=== PATIENT | female | born 1995 | race Caucasian/White ===

== ENCOUNTER 2020-08-25 15:52 | Inpatient (IN) | payer OTHER ==
[2020-08-25] MEDS ORDERED: Terbutaline 1 MG/ML SDV SUBCUT PRN (16:56)
[2020-08-25] MEDS ORDERED: Misoprostol 25 MCG (1/4 of 100 MCG) Tab VAG PRN ×2 (16:56→23:00)
[2020-08-25] MEDS ORDERED: Oxytocin/0.9 % Sodium Chloride 30 UNIT/500 ML BAG IV SCH ×2 (17:00→17:15)
[2020-08-25] MEDS ORDERED: Tranexamic Acid 1,000 MG in Sodium Chloride 0.9% 100 ML IV PRN (17:02)
[2020-08-25] MEDS ORDERED: Sodium Chloride 0.9% 10 ML Syringe FLUSH PRN (17:02)
[2020-08-25] MEDS ORDERED: Water For Irrigation,Sterile 1,000 ML Container IRR PRN (17:02)
[2020-08-25] MEDS ORDERED: Ondansetron 4 MG/2 ML SDV IVPUSH PRN (17:02)
[2020-08-25] MEDS ORDERED: Lidocaine 1% 50 ML MDV INJECT PRN (17:02)
[2020-08-25] MEDS ORDERED: Methylergonovine 0.2 MG/1 ML Amp IM PRN (17:02)
[2020-08-25] MEDS ORDERED: Nalbuphine 10 MG/1 ML Vial IVPUSH PRN (17:02)
[2020-08-25] MEDS ORDERED: Sodium Chloride 0.9% 2.5 ML Syringe FLUSH PRN (17:02)
[2020-08-25] MEDS ORDERED: Misoprostol 200 MCG Tab PO PRN (17:02)
[2020-08-25] MEDS ORDERED: Sodium Chloride 0.9% 10 ML SDV IV PRN (17:02)
[2020-08-25] MEDS ORDERED: Butorphanol 1 MG/ML SDV IVPUSH PRN (17:02)
[2020-08-25] MEDS ORDERED: Carboprost Tromethamine 250 MCG/1 ML Amp IM PRN (17:02)
[2020-08-26] MEDS: Lactated Ringers 1,000 ML IV SCH ×2 (05:25→06:03)
[2020-08-26] MEDS ORDERED: Bupivacaine 0.25% 10 ML SDV ONE (05:46)
[2020-08-26] MEDS ORDERED: Ropivacaine HCl/PF 200 ML ONE (05:46)
--- NOTE | 2020-08-26 06:30 | PCM.PREANE ---
Preanesthetic Assessment - Anesthesia/Transfusion/Family Hx Anesthesia History: No Prior Anesthesia Family History of Anesthesia Reaction: No Transfusion History: No Prior Transfusion(s) - Review of Systems General: No Symptoms Pulmonary: No Symptoms Cardiovascular: No Symptoms Gastrointestinal: No Symptoms Neurological: No Symptoms Other: Reports: None - Physical Assessment NPO Status Date: 08/26/20 NPO Status Time: 05:53 Height: 5 ft 10 in Weight: 191 lb ASA Class: 2 Mental Status: Alert & Oriented x3 Airway Class: Mallampati = 2 Dentition: Reports: Normal Dentition ROM/Head Extension: Full Lungs: Clear to Auscultation, Normal Respiratory Effort Cardiovascular: Regular Rate, Regular Rhythm - Lab Values: Laboratory Last Values WBC 9.04 K/uL (4.0-11.0) 08/25/20 16:44 RBC 4.04 M/uL (4.30-5.90) L 08/25/20 16:44 Hgb 13.3 g/dL (12.0-16.0) 08/25/20 16:44 Hct 38.9 % (36.0-46.0) 08/25/20 16:44 MCV 96.3 fL (80.0-98.0) 08/25/20 16:44 MCH 32.9 pg (27.0-32.0) H 08/25/20 16:44 MCHC 34.2 g/dL (31.0-37.0) 08/25/20 16:44 RDW Std Deviation 47.4 fl (28.0-62.0) 08/25/20 16:44 RDW Coeff of Magan 13 % (11.0-15.0) 08/25/20 16:44 Plt Count 185 K/uL (150-400) 08/25/20 16:44 MPV 11.00 fL (7.40-12.00) 08/25/20 16:44 Nucleated RBC % 0.0 /100WBC 08/25/20 16:44 Nucleated RBCs # 0 K/uL 08/25/20 16:44 SARS-CoV-2 RNA (ALBA) NEGATIVE (NEGATIVE) 08/25/20 16:44 Blood Type A POSITIVE 08/25/20 16:44 Antibody Screen NEGATIVE 08/25/20 16:44 - Allergies Allergies/Adverse Reactions: Allergies Allergy/AdvReac Type Severity Reaction Status Date / Time No Known Allergies Allergy Verified 08/25/20 17:24 - Blood Blood Available: Yes Product(s) Available: PRBC - Anesthesia Plan Pre-Op Medication Ordered: None - Acknowledgements Anesthesia Type Planned: Epidural Pt an Appropriate Candidate for the Planned Anesthesia: Yes Alternatives and Risks of Anesthesia Discussed w Pt/Guardian: Yes Pt/Guardian Understands and Agrees with Anesthesia Plan: Yes PreAnesthesia Questionnaire - Past Health History Medical/Surgical History: Denies Medical/Surgical History BAS[employer] DEAN History: Reports: - SUBSTANCE USE Tobacco Use Within Last Twelve Months: No Second Hand Smoke Exposure: No Recreational Drug Use History: No - HOME MEDS Home Medications: Home Meds Pnv No.95/Ferrous Fum/Folic AC [ Caplet] 1 each PO DAILY 08/25/20 [History] - CURRENT (IN HOUSE) MEDS Current Meds: Current Medications Butorphanol Tartrate (Butorphanol 1 Mg/Ml Sdv) 1 mg IVPUSH Q1H PRN PRN Reason: Pain (severe 7-10) Carboprost Tromethamine (Carboprost Tromethamine 250 Mcg/1 Ml Amp) 250 mcg IM ASDIRECTED PRN PRN Reason: Post Hemorrhage Oxytocin/Sodium Chloride (Oxytocin 30 Unit/500 Ml-Ns) 30 unit in 500 mls @ 2 mls/hr IV TITRATE STEVE; Protocol Lactated Ringer's (Ringers, Lactated) 1,000 mls @ 150 mls/hr IV ASDIRECTED STEVE Last Admin: 08/26/20 06:03 Dose: 150 mls/hr Documented by: Oxytocin/Sodium Chloride (Oxytocin 30 Unit/500 Ml-Ns) 30 unit in 500 mls @ 999 mls/hr IV TITRATE STEVE Tranexamic Acid 1,000 mg/ (Sodium Chloride) 110 mls @ 660 mls/hr IV ONETIME PRN PRN Reason: Bleeding Lidocaine HCl (Lidocaine 1% 50 Ml Mdv) 50 ml INJECT ONETIME PRN PRN Reason: Laceration repair Methylergonovine Maleate (Methylergonovine 0.2 Mg/1 Ml Amp) 0.2 mg IM ASDIRECTED PRN PRN Reason: Post Hemorrhage Misoprostol (Misoprostol 25 Mcg (1/4 Of 100 Mcg) Tab) 25 mcg VAG ONETIME PRN PRN Reason: Cervical Ripening Last Admin: 08/25/20 17:46 Dose: 25 mcg Documented by: Misoprostol (Misoprostol 25 Mcg (1/4 Of 100 Mcg) Tab) 25 mcg VAG Q6H PRN PRN Reason: Cervical Ripening Last Admin: 08/25/20 23:54 Dose: 25 mcg Documented by: Misoprostol (Misoprostol 200 Mcg Tab) 200 mcg PO ONETIME PRN PRN Reason: Post Hemorrhage Nalbuphine HCl (Nalbuphine 10 Mg/1 Ml Vial) 10 mg IVPUSH Q1H PRN PRN Reason: Pain (severe 7-10) Ondansetron HCl (Ondansetron 4 Mg/2 Ml Sdv) 4 mg IVPUSH Q6H PRN PRN Reason: Nausea/Vomiting Sodium Chloride (Sodium Chloride 0.9% 10 Ml Syringe) 10 ml FLUSH ASDIRECTED PRN PRN Reason: Keep Vein Open Sodium Chloride (Sodium Chloride 0.9% 2.5 Ml Syringe) 2.5 ml FLUSH ASDIRECTED PRN PRN Reason: Keep Vein Open Sodium Chloride (Sodium Chloride 0.9% 10 Ml Sdv) 10 ml IV ASDIRECTED PRN PRN Reason: IV Use Sterile Water (Water For Irrigation,Sterile 1,000 Ml Container) 1,000 ml IRR ASDIRECTED PRN PRN Reason: delivery Terbutaline Sulfate (Terbutaline 1 Mg/Ml Sdv) 0.25 mg SUBCUT ASDIRECTED PRN PRN Reason: Tacysystole Discontinued Medications Bupivacaine HCl (Bupivacaine 0.25% 10 Ml Sdv) Confirm Administered Dose 10 ml .ROUTE .STK-MED ONE Stop: 08/26/20 05:47 Ropivacaine (Naropin 0.2%) Confirm Administered Dose 200 mls @ as directed .ROUTE .STK-MED ONE Stop: 08/26/20 05:47
--- NOTE | 2020-08-26 06:35 | PCM.SN.2 ---
- Pre-Procedure Checklist Attending Provider Aware: Yes Chart Reviewed: Yes Consent Signed: Yes Labs Reviewed: Yes VS/FHR Reviewed: Yes Patient Identification Confirmation Method: Reports: Verbal Patient Pt an Appropriate Candidate for the Planned Anesthesia: Yes Alternatives and Risks of Anesthesia Discussed w Pt/Guardian: Yes - Procedure Procedure Start Date: 08/26/20 Procedure Start Time: 05:[address]: Reports: Blood Pressure, Heart Rate, SPO2 Functional IV: Yes Safety Measures: Reports: Patient Identified, Procedure Verified, Site Verified, Procedure Time Out Patient Position: Reports: Sitting Prep: Reports: Betadine x3 Local Anesthetic: Reports: Intradermal Wheal w Lidocaine 1% Regional Placement Level: Reports: L3-4 Needle: Reports: 17 g Touhy Approach: Reports: Midline Technique: Reports: MARSHA Plastic Syringe Parasthesia: Reports: None Fluid Obtained: Reports: None Test Dose Time: 05:59 Test Dose Medication: Reports: Lidocaine 1.5% w Epinephrine 1:200,000 Test Dose Response: Reports: Negative Loading Dose Time: 05:58 Loading Dose Medication: bupivicaine 0.25% 10cc Loading Dose Patient Position: sittting Continuous Infusion Start Time: 06:05 Continuous Infusion Medication: ropivicaine 0.2% Continuous Infusion Rate: 16 Continuous Infusion PCS Bolus Option: 4 Continuous Infusion Lockout Dose (cc/hr): 32 Patient Position Post Placement: Reports: Supline/RASTA Level Achieved: adequate VS and FHR Monitored in Unit Post Placement: Yes Procedure End Date: 08/26/20 Procedure End Time: 06:53
[2020-08-26] MEDS ORDERED: Ibuprofen 800 MG Tab PO PRN (08:11)
[2020-08-26] MEDS ORDERED: Tranexamic Acid 1,000 MG in Sodium Chloride 0.9% 100 ML IV PRN (08:11)
[2020-08-26] MEDS ORDERED: Witch Hazel Medicated Pads 40/Jar TOP PRN (08:11)
[2020-08-26] MEDS ORDERED: Ibuprofen 400 MG Tab PO PRN (08:11)
[2020-08-26] MEDS ORDERED: Bisacodyl 10 MG Supp RECTAL PRN (08:11)
[2020-08-26] MEDS ORDERED: Lanolin 100% Cream 7 GM Tube TOP PRN (08:11)
[2020-08-26] MEDS ORDERED: Methylergonovine 0.2 MG/1 ML Amp IM PRN (08:11)
[2020-08-26] MEDS ORDERED: Acetaminophen 500 MG Tab PO PRN ×2 (08:11)
[2020-08-26] MEDS ORDERED: Carboprost Tromethamine 250 MCG/1 ML Amp IM PRN (08:11)
[2020-08-26] MEDS ORDERED: Benzocaine/Menthol 20%-0.5% Spray 78 GM Cannister TOP PRN (08:11)
--- NOTE | 2020-08-26 08:16 | PCM.DEL ---
L & D Note - General Info Date of Service: 08/26/20 Mother's Due Date: 08/23/20 - Delivery Note Cervical Ripening Method: Misoprostil Delivery Outcome: Livebirth Infant Delivery Method: Spontaneous Vaginal Delivery-Single Presentation: Left Occiput Anterior (VERONIKA) Nuchal Cord: None Prep: Other Anesthesia Type: Epidural Amniotic Fluid Description: Clear Episiotomy Type: None Placenta: Spontaneous Cord: 3 Vessels Estimated Blood Loss: 200 Resuscitation Needed: No [place]: Suctioned Score 1 min: 8 Score 5 min: 9 Delivery Comments (Free Text/Narrative):: LIveborn female - General Info Date of Service: 08/26/20 - Patient Data Weight - Most Recent: 86.636 kg Lab Results Last 24 Hours: Laboratory Results - last 24 hr 08/25/20 08/25/20 08/25/20 Range/Units 16:44 16:44 16:44 WBC 9.04 (4.0-11.0) K/uL RBC 4.04 L (4.30-5.90) M/uL Hgb 13.3 (12.0-16.0) g/dL Hct 38.9 (36.0-46.0) % MCV 96.3 (80.0-98.0) fL MCH 32.9 H (27.0-32.0) pg MCHC 34.2 (31.0-37.0) g/dL RDW Std Deviation 47.4 (28.0-62.0) fl RDW Coeff of Magan 13 (11.0-15.0) % Plt Count 185 (150-400) K/uL MPV 11.00 (7.40-12.00) fL Nucleated RBC % 0.0 /100WBC Nucleated RBCs # 0 K/uL SARS-CoV-2 RNA (ALBA) NEGATIVE (NEGATIVE) Blood Type A POSITIVE Antibody Screen NEGATIVE Med Orders - Current: Current Medications Acetaminophen (Acetaminophen 500 Mg Tab) 500 mg PO Q4H PRN PRN Reason: Pain (mild 1-3) Acetaminophen (Acetaminophen 500 Mg Tab) 1,000 mg PO Q4H PRN PRN Reason: Pain (mild 1-3) Benzocaine/Menthol (Benzocaine/Menthol 20%-0.5% [place] 78 Gm Cannister) 78 gm TOP ASDIRECTED PRN PRN Reason: Perineal Comfort Measure Bisacodyl (Bisacodyl 10 Mg Supp) 10 mg RECTAL ONETIME PRN PRN Reason: Constipation Carboprost Tromethamine (Carboprost Tromethamine 250 Mcg/1 Ml Amp) 250 mcg IM ASDIRECTED PRN PRN Reason: Excessive vaginal bleeding Docusate Sodium (Docusate Sodium 100 Mg Cap) 100 mg PO Q12H PRN PRN Reason: Constipation Emollient Ointment (Lanolin 100% Cream 7 Gm Tube) 0 gm TOP ASDIRECTED PRN PRN Reason: Sore Nipples Tranexamic Acid 1,000 mg/ (Sodium Chloride) 110 mls @ 660 mls/hr IV ONETIME PRN PRN Reason: Bleeding Ibuprofen (Ibuprofen 400 Mg Tab) 400 mg PO Q4H PRN PRN Reason: Pain (mild 1-3) Ibuprofen (Ibuprofen 800 Mg Tab) 800 mg PO Q6H PRN PRN Reason: Pain (mild 1-3) Methylergonovine Maleate (Methylergonovine 0.2 Mg/1 Ml Amp) 0.2 mg IM ONETIME PRN PRN Reason: Excessive Vaginal Bleeding Witch Saundra (Witch Saundra Medicated Pads 40/Jar) 1 pad TOP ASDIRECTED PRN PRN Reason: comfort care Discontinued Medications Bupivacaine HCl (Bupivacaine 0.25% 10 Ml Sdv) Confirm Administered Dose 10 ml .ROUTE .K-MED ONE Stop: 08/26/20 05:47 Last Admin: 08/26/20 07:41 Dose: Not Given Documented by: Butorphanol Tartrate (Butorphanol 1 Mg/Ml Sdv) 1 mg IVPUSH Q1H PRN PRN Reason: Pain (severe 7-10) Carboprost Tromethamine (Carboprost Tromethamine 250 Mcg/1 Ml Amp) 250 mcg IM ASDIRECTED PRN PRN Reason: Post Hemorrhage Oxytocin/Sodium Chloride (Oxytocin 30 Unit/500 Ml-Ns) 30 unit in 500 mls @ 2 mls/hr IV TITRATE STEVE; Protocol Lactated Ringer's (Ringers, Lactated) 1,000 mls @ 150 mls/hr IV ASDIRECTED STEVE Last Admin: 08/26/20 06:03 Dose: 150 mls/hr Documented by: Oxytocin/Sodium Chloride (Oxytocin 30 Unit/500 Ml-Ns) 30 unit in 500 mls @ 999 mls/hr IV TITRATE STEVE Tranexamic Acid 1,000 mg/ (Sodium Chloride) 110 mls @ 660 mls/hr IV ONETIME PRN PRN Reason: Bleeding Ropivacaine (Naropin 0.2%) Confirm Administered Dose 200 mls @ as directed .ROUTE .STK-MED ONE Stop: 08/26/20 05:47 Last Admin: 08/26/20 07:41 Dose: Not Given Documented by: Lidocaine HCl (Lidocaine 1% 50 Ml Mdv) 50 ml INJECT ONETIME PRN PRN Reason: Laceration repair Methylergonovine Maleate (Methylergonovine 0.2 Mg/1 Ml Amp) 0.2 mg IM ASDIRECTED PRN PRN Reason: Post Hemorrhage Misoprostol (Misoprostol 25 Mcg (1/4 Of 100 Mcg) Tab) 25 mcg VAG ONETIME PRN PRN Reason: Cervical Ripening Last Admin: 08/25/20 17:46 Dose: 25 mcg Documented by: Misoprostol (Misoprostol 25 Mcg (1/4 Of 100 Mcg) Tab) 25 mcg VAG Q6H PRN PRN Reason: Cervical Ripening Last Admin: 08/25/20 23:54 Dose: 25 mcg Documented by: Misoprostol (Misoprostol 200 Mcg Tab) 200 mcg PO ONETIME PRN PRN Reason: Post Hemorrhage Nalbuphine HCl (Nalbuphine 10 Mg/1 Ml Vial) 10 mg IVPUSH Q1H PRN PRN Reason: Pain (severe 7-10) Ondansetron HCl (Ondansetron 4 Mg/2 Ml Sdv) 4 mg IVPUSH Q6H PRN PRN Reason: Nausea/Vomiting Sodium Chloride (Sodium Chloride 0.9% 10 Ml Syringe) 10 ml FLUSH ASDIRECTED PRN PRN Reason: Keep Vein Open Sodium Chloride (Sodium Chloride 0.9% 2.5 Ml Syringe) 2.5 ml FLUSH ASDIRECTED PRN PRN Reason: Keep Vein Open Sodium Chloride (Sodium Chloride 0.9% 10 Ml Sdv) 10 ml IV ASDIRECTED PRN PRN Reason: IV Use Sterile Water (Water For Irrigation,Sterile 1,000 Ml Container) 1,000 ml IRR ASDIRECTED PRN PRN Reason: delivery Terbutaline Sulfate (Terbutaline 1 Mg/Ml Sdv) 0.25 mg SUBCUT ASDIRECTED PRN PRN Reason: Tacysystole - Problem List & Annotations (1) Vaginal delivery SNOMED Code(s): 480063116 Code(s): O80 - ENCOUNTER FOR FULL-TERM UNCOMPLICATED DELIVERY Status: Acute Current Visit: Yes (2) Polyhydramnios SNOMED Code(s): 97913700 Code(s): O40.9XX0 - POLYHYDRAMNIOS, UNSP TRIMESTER, NOT APPLICABLE OR UNSP Status: Acute Current Visit: Yes Qualifiers: Trimester: third trimester - Problem List Review Problem List Initiated/Reviewed/Updated: Yes - My Orders Last 24 Hours: My Active Orders 08/26/20 Breakfast Regular Diet [DIET] 08/26/20 08:11 Patient Status [ADT] Routine May Shower [RC] ASDIRECTED Up ad Arianna [RC] ASDIRECTED Vital Signs [RC] PER UNIT ROUTINE BLOOD GAS ARTERIAL UMBILICAL [BG] Urgent BLOOD GAS VENOUS UMBILICAL [BG] Urgent Acetaminophen [Tylenol Extra Strength] 1,000 mg PO Q4H PRN Acetaminophen [Tylenol Extra Strength] 500 mg PO Q4H PRN Benzocaine/Menthol [Dermoplast Pain Relief 20%-0.5% [place]] 78 gm TOP ASDIRECTED PRN Carboprost Tromethamine [Hemabate DS] 250 mcg IM ASDIRECTED PRN Docusate Sodium [Colace] 100 mg PO Q12H PRN Ibuprofen [Motrin] 400 mg PO Q4H PRN Ibuprofen [Motrin] 800 mg PO Q6H PRN Lanolin [Lansinoh HPA] See Dose Instructions TOP ASDIRECTED PRN Methylergonovine [Methergine] 0.2 mg IM ONETIME PRN Tranexamic Acid [Cyklokapron] 1,000 mg Sodium Chloride 0.9% [Normal Saline] 100 ml IV ONETIME bisacodyL [Dulcolax] 10 mg RECTAL ONETIME PRN witch Saundra [Tucks] 1 pad TOP ASDIRECTED PRN Assess Lochia [WOMSER] Per Unit Routine Assess Uterine Involution [WOMSER] Per Unit Routine Peripheral IV Discontinue [OM.PC] Routine Resuscitation Status Routine 08/26/20 08:12 Perineal Care [OM.PC] Per Unit Routine 08/27/20 05:11 HEMOGLOBIN/HEMATOCRIT,HH [HEME] Timed
[2020-08-26] MEDS ORDERED: hydrOXYzine Pamoate 25 MG Cap PO ONE (10:09)
--- NOTE | 2020-08-26 13:00 | PCM48HPAN ---
Post Anesthesia Note - EVALUATION WITHIN 48HRS OF ANESTHETIC Vital Signs in Normal Range: Yes Patient Participated in Evaluation: Yes Respiratory Function Stable: Yes Airway Patent: Yes Cardiovascular Function Stable: Yes Hydration Status Stable: Yes Pain Control Satisfactory: Yes Nausea and Vomiting Control Satisfactory: Yes Mental Status Recovered: Yes Vital Signs: Last Vital Signs Temp 98.3 F 08/26/20 10:20 Pulse 79 08/26/20 10:20 Resp 18 08/26/20 10:20 BP 107/63 08/26/20 10:20 Pulse Ox
--- NOTE | 2020-08-26 13:00 | PCM.POSTAN ---
POST ANESTHESIA ASSESSMENT - MENTAL STATUS Mental Status: Alert, Oriented - VITAL SIGNS Vital Signs: Last Vital Signs Temp 98.3 F 08/26/20 10:20 Pulse 79 08/26/20 10:20 Resp 18 08/26/20 10:20 BP 107/63 08/26/20 10:20 Pulse Ox - RESPIRATORY Respiratory Status: Respiratory Rate WNL, Airway Patent, O2 Saturation Stable - CARDIOVASCULAR CV Status: Pulse Rate WNL, Blood Pressure Stable - GASTROINTESTINAL GI Status: No Symptoms - POST OP HYDRATION Hydration Status: Adequate & Stable
--- NOTE | 2020-08-26 14:47 | OR ---
SURGEON: Yazmin Reynolds M.D. DATE OF PROCEDURE: 08/26/2020 PREOPERATIVE DIAGNOSES: 1. 40 and 3/7 weeks intrauterine . 2. Polyhydramnios. POSTOPERATIVE DIAGNOSES: 1. 40 and 3/7 weeks intrauterine . 2. Polyhydramnios. PROCEDURE: Cytotec induction of labor, term vaginal delivery, repair of vaginal laceration. PRIMARY SURGEON: Yazmin Reynolds M.D. ANESTHESIA: Epidural. ESTIMATED BLOOD LOSS: Less than 200 mL. FINDINGS: Liveborn female. score of 8 and 9, weight is pending at the time of dictation. Placenta spontaneous, [place] intact, with three vessels. There was a small vaginal laceration at 6 o'clock which was repaired. COMPLICATIONS: None known. DISPOSITION: Mother and baby in LDR in good condition. BRIEF HISTORY: This is a 25-year-old female, G1, P0. She presents at 40 and 3/7 weeks gestation. She had a biophysical profile on this day. She was found have polyhydramnios and an equivocal NST, and therefore was sent for induction of labor. She received two doses of Cytotec. At this time, she was 5 cm. She received an epidural for pain control. She had spontaneous rupture of membranes. She progressed to complete. DESCRIPTION OF PROCEDURE: With the patient in dorsal lithotomy position, the patient pushed over approximately a 1-hour time period to a 5+ station, at which time the head was delivered spontaneously and atraumatically over the perineum with support, with subsequent delivery of the infant's shoulders and body without any difficulty. The was bulb suctioned by nose and mouth and handed to the mother in the presence of nurse attending delivery. The was a liveborn female, score of 8 and 9. After 2 minutes, the cord was doubly clamped and cut. Cord blood was collected for cord ABGs as well as routine cord blood sampling. Pitocin was initiated after delivery of the infant to assist with delivery the placenta which was delivered spontaneously, [place] intact, with three vessels. Upon inspection of the pelvis and perineum, there were no periurethral, vaginal sidewall, cervical, perineal, or rectal lacerations. There was a small vaginal laceration at 6 o'clock that was repaired with a running lock suture of 3-0 Vicryl. Final sponge, needle, and instrument counts were correct. There were no known complications. Mother and baby remained in LDR in good condition. ZACHARY SANCHEZ /[id number]
[2020-08-26] MEDS: Docusate Sodium 100 MG Cap PO PRN (22:05)
--- NOTE | 2020-08-27 09:16 | PCM.PNPP ---
- General Info Date of Service: 08/27/20 Functional Status: Reports: Pain Controlled, Tolerating Diet, Ambulating, Urinating - Review of Systems General: Denies: Fever, Weakness Pulmonary: Denies: Shortness of Breath Cardiovascular: Denies: Chest Pain, Palpitations, Lightheadedness Gastrointestinal: Denies: Abdominal Pain, Nausea, Vomiting Genitourinary: Denies: Flank Pain Musculoskeletal: Reports: No Symptoms Skin: Reports: No Symptoms Neurological: Reports: No Symptoms Psychiatric: Reports: No Symptoms - General Info Date of Service: 08/27/20 - Patient Data Vital Signs - Most Recent: Last Vital Signs Temp 36.7 C 08/27/20 08:00 Pulse 73 08/27/20 08:00 Resp 18 08/27/20 08:00 BP 103/54 L 08/27/20 08:00 Pulse Ox 97 08/27/20 08:00 Weight - Most Recent: 86.636 kg Lab Results - Last 24 Hours: Laboratory Results - last 24 hr 08/27/20 Range/Units 04:55 Hgb 12.8 (12.0-16.0) g/dL Hct 37.8 (36.0-46.0) % Med Orders - Current: Current Medications Acetaminophen (Acetaminophen 500 Mg Tab) 500 mg PO Q4H PRN PRN Reason: Pain (mild 1-3) Acetaminophen (Acetaminophen 500 Mg Tab) 1,000 mg PO Q4H PRN PRN Reason: Pain (mild 1-3) Benzocaine/Menthol (Benzocaine/Menthol 20%-0.5% [place] 78 Gm Cannister) 78 gm TOP ASDIRECTED PRN PRN Reason: Perineal Comfort Measure Bisacodyl (Bisacodyl 10 Mg Supp) 10 mg RECTAL ONETIME PRN PRN Reason: Constipation Carboprost Tromethamine (Carboprost Tromethamine 250 Mcg/1 Ml Amp) 250 mcg IM ASDIRECTED PRN PRN Reason: Excessive vaginal bleeding Docusate Sodium (Docusate Sodium 100 Mg Cap) 100 mg PO Q12H PRN PRN Reason: Constipation Last Admin: 08/26/20 22:05 Dose: 100 mg Documented by: Emollient Ointment (Lanolin 100% Cream 7 Gm Tube) 0 gm TOP ASDIRECTED PRN PRN Reason: Sore Nipples Tranexamic Acid 1,000 mg/ (Sodium Chloride) 110 mls @ 660 mls/hr IV ONETIME PRN PRN Reason: Bleeding Ibuprofen (Ibuprofen 400 Mg Tab) 400 mg PO Q4H PRN PRN Reason: Pain (mild 1-3) Ibuprofen (Ibuprofen 800 Mg Tab) 800 mg PO Q6H PRN PRN Reason: Pain (mild 1-3) Last Admin: 08/26/20 19:48 Dose: 800 mg Documented by: Methylergonovine Maleate (Methylergonovine 0.2 Mg/1 Ml Amp) 0.2 mg IM ONETIME PRN PRN Reason: Excessive Vaginal Bleeding Witch Saundra (Witch Saundra Medicated Pads 40/Jar) 1 pad TOP ASDIRECTED PRN PRN Reason: comfort care Discontinued Medications Bupivacaine HCl (Bupivacaine 0.25% 10 Ml Sdv) Confirm Administered Dose 10 ml .ROUTE .[employer] ONE Stop: 08/26/20 05:47 Last Admin: 08/26/20 07:41 Dose: Not Given Documented by: Butorphanol Tartrate (Butorphanol 1 Mg/Ml Sdv) 1 mg IVPUSH Q1H PRN PRN Reason: Pain (severe 7-10) Carboprost Tromethamine (Carboprost Tromethamine 250 Mcg/1 Ml Amp) 250 mcg IM ASDIRECTED PRN PRN Reason: Post Hemorrhage Oxytocin/Sodium Chloride (Oxytocin 30 Unit/500 Ml-Ns) 30 unit in 500 mls @ 2 mls/hr IV TITRATE STEVE; Protocol Lactated Ringer's (Ringers, Lactated) 1,000 mls @ 150 mls/hr IV ASDIRECTED STEVE Last Admin: 08/26/20 06:03 Dose: 150 mls/hr Documented by: Oxytocin/Sodium Chloride (Oxytocin 30 Unit/500 Ml-Ns) 30 unit in 500 mls @ 999 mls/hr IV TITRATE STEVE Tranexamic Acid 1,000 mg/ (Sodium Chloride) 110 mls @ 660 mls/hr IV ONETIME PRN PRN Reason: Bleeding Ropivacaine (Naropin 0.2%) Confirm Administered Dose 200 mls @ as directed .ROUTE .[facility] ONE Stop: 08/26/20 05:47 Last Admin: 08/26/20 07:41 Dose: Not Given Documented by: Lidocaine HCl (Lidocaine 1% 50 Ml Mdv) 50 ml INJECT ONETIME PRN PRN Reason: Laceration repair Methylergonovine Maleate (Methylergonovine 0.2 Mg/1 Ml Amp) 0.2 mg IM ASDIRECTED PRN PRN Reason: Post Hemorrhage Misoprostol (Misoprostol 25 Mcg (1/4 Of 100 Mcg) Tab) 25 mcg VAG ONETIME PRN PRN Reason: Cervical Ripening Last Admin: 08/25/20 17:46 Dose: 25 mcg Documented by: Misoprostol (Misoprostol 25 Mcg (1/4 Of 100 Mcg) Tab) 25 mcg VAG Q6H PRN PRN Reason: Cervical Ripening Last Admin: 08/25/20 23:54 Dose: 25 mcg Documented by: Misoprostol (Misoprostol 200 Mcg Tab) 200 mcg PO ONETIME PRN PRN Reason: Post Hemorrhage Nalbuphine HCl (Nalbuphine 10 Mg/1 Ml Vial) 10 mg IVPUSH Q1H PRN PRN Reason: Pain (severe 7-10) Ondansetron HCl (Ondansetron 4 Mg/2 Ml Sdv) 4 mg IVPUSH Q6H PRN PRN Reason: Nausea/Vomiting Sodium Chloride (Sodium Chloride 0.9% 10 Ml Syringe) 10 ml FLUSH ASDIRECTED PRN PRN Reason: Keep Vein Open Sodium Chloride (Sodium Chloride 0.9% 2.5 Ml Syringe) 2.5 ml FLUSH ASDIRECTED PRN PRN Reason: Keep Vein Open Sodium Chloride (Sodium Chloride 0.9% 10 Ml Sdv) 10 ml IV ASDIRECTED PRN PRN Reason: IV Use Sterile Water (Water For Irrigation,Sterile 1,000 Ml Container) 1,000 ml IRR ASDIRECTED PRN PRN Reason: delivery Terbutaline Sulfate (Terbutaline 1 Mg/Ml Sdv) 0.25 mg SUBCUT ASDIRECTED PRN PRN Reason: Tacysystole - Interaction Infant Disposition, : [place] in Room with Family Infant Interaction: Holding Infant Feeding: Breastfed Infant; Nursed Well Support Person: - Recovery Exam Fundal Tone: Firm Fundal Level: 1 Fingerbreadths Below Umbilicus Fundal Placement: Midline Lochia Amount: Scant Lochia Color: Rubra/Red Perineum Description: Other (see below) Other Perinuem Description: 1st degree Episiotomy/Laceration: Approximated Bladder Status: Voiding - Exam General: Alert, Oriented Lungs: Normal Respiratory Effort Cardiovascular: Regular Rate, Regular Rhythm GI/Abdominal Exam: Normal Bowel Sounds, Soft Extremities: Non-Tender, Pedal Edema (trace). No: Bennett's Sign Skin: Warm, Dry, Intact Neurological: No New Focal Deficit Psy/Mental Status: Alert, Normal Affect, Normal Mood - Problem List & Annotations (1) Vaginal delivery SNOMED Code(s): 263075435 Code(s): O80 - ENCOUNTER FOR FULL-TERM UNCOMPLICATED DELIVERY Status: Acute Current Visit: Yes - Problem List Review Problem List Initiated/Reviewed/Updated: Yes - My Orders Last 24 Hours: My Active Orders 08/27/20 09:14 Ready for Discharge [RC] PER UNIT ROUTINE - Assessment Assessment:: PPD 1 status post - Plan Plan:: VS and labs are reassuring. Patient would like to go home. Discharge instructions reviewed. Follow up at [facility] 4 weeks. Discharge to home today.
[2020-08-27] MEDS: Docusate Sodium 100 MG Cap PO PRN (12:31)
== END 2020-08-27 16:08 | disposition home or self-care (01) | DRG 807 ==
LOC: MW.OB 15:52 → MW.OBCHECK 15:52 → MW.OB 17:02 → MW.OBCHECK 17:02 → OBSVTOIN 08-26 07:48 → MW.OB 08-26 12:16
PROVIDERS: ADMIT Obstetrics & Gynecology; ATTEND Obstetrics & Gynecology
PROC: 10E0XZZ Delivery of Products of Conception, External Approach (ICD-10-PCS; principal; 2020-08-26)
PROC: 3E0P7VZ Introduction of Hormone into Female Reproductive, Via Natural or Artificial Opening (ICD-10-PCS; 2020-08-26)
PROC: 0UQGXZZ Repair Vagina, External Approach (ICD-10-PCS; 2020-08-26)
PROC: 3E0R3BZ Introduction of Anesthetic Agent into Spinal Canal, Percutaneous Approach (ICD-10-PCS; 2020-08-26)
DX: O48.0 Post-term pregnancy (principal); Z37.0 Single live birth; O40.3XX0 Polyhydramnios, third trimester, not applicable or unspecified; O70.0 First degree perineal laceration during delivery; Z20.822 Contact with and (suspected) exposure to COVID-19; Z3A.40 40 weeks gestation of pregnancy
CPT/HCPCS: 01967; 36415; 51702; 59025; 59409; 82803; 85014; 85018; 85027; 86592; 86850; 86900; 86901; A9270-GY; J2795; J3490; J7120; U0002

== ENCOUNTER 2022-07-18 14:34 | Inpatient (IN) | payer BC ==
[2022-07-18] MEDS ORDERED: Methylergonovine 0.2 MG/1 ML Amp IM PRN (15:47)
[2022-07-18] MEDS ORDERED: Sodium Chloride 0.9% 2.5 ML Syringe FLUSH PRN (15:47)
[2022-07-18] MEDS ORDERED: Tranexamic Acid 1,000 MG in Sodium Chloride 0.9% 100 ML IV PRN (15:47)
[2022-07-18] MEDS ORDERED: Water For Irrigation,Sterile 1,000 ML Container IRR PRN (15:47)
[2022-07-18] MEDS ORDERED: Carboprost Tromethamine 250 MCG/1 mL Vial IM PRN (15:47)
[2022-07-18] MEDS ORDERED: Misoprostol 200 MCG Tab PO PRN (15:47)
[2022-07-18] MEDS ORDERED: Sodium Chloride 0.9% 10 ML Syringe FLUSH PRN (15:47)
[2022-07-18] MEDS ORDERED: Lidocaine 1% 50 ML MDV INJECT PRN (15:47)
[2022-07-18] MEDS ORDERED: Sodium Chloride 0.9% 20 ML SDV IV PRN (15:47)
[2022-07-18] MEDS ORDERED: Butorphanol 1 MG/ML SDV IVPUSH PRN (15:47)
[2022-07-18] MEDS ORDERED: Oxytocin/0.9 % Sodium Chloride 30 UNIT/500 ML BAG IV SCH (16:00)
[2022-07-18] MEDS ORDERED: Lactated Ringers 1,000 ML IV SCH (16:00)
[2022-07-18] MEDS ORDERED: oxyCODONE 5 MG Tab PO PRN (16:41)
[2022-07-18] MEDS ORDERED: Benzocaine/Menthol 20%-0.5% Spray 78 GM Cannister TOP PRN (16:41)
[2022-07-18] MEDS ORDERED: Lanolin 100% Cream 7 GM Tube TOP PRN (16:41)
[2022-07-18] MEDS ORDERED: Docusate Sodium 100 MG Cap PO PRN (16:41)
[2022-07-18] MEDS ORDERED: Ibuprofen 800 MG Tab PO PRN (16:41)
[2022-07-18] MEDS ORDERED: Witch Hazel Medicated Pads 40/Jar TOP PRN (16:41)
[2022-07-18] MEDS ORDERED: Acetaminophen 500 MG Tab PO PRN ×2 (16:41)
[2022-07-18] MEDS ORDERED: Bisacodyl 10 MG Supp RECTAL PRN (16:41)
[2022-07-18] MEDS ORDERED: Ibuprofen 400 MG Tab PO PRN (16:41)
[2022-07-18 17:15] LABS: PH,UMBILICAL ARTERIAL 7.09 (7.18-7.38); PH,UMBILICAL VENOUS 7.145 (7.25-7.45)
[2022-07-18 17:49] LABS: HEMATOCRIT 38.4 % (36.0-46.0); HEMOGLOBIN 13.3 g/dL (12.0-16.0); MEAN CORPUSCULAR HEMOGLOBIN 31.7 pg (27.0-32.0); MEAN CORPUSCULAR HGB CONC 34.6 g/dL (31.0-37.0); MEAN CORPUSCULAR VOLUME 91.6 fL (80.0-98.0); MEAN PLATELET VOLUME 10.9 fL (7.40-12.00); RED BLOOD CELL COUNT 4.19 M/uL (4.30-5.90)
[2022-07-19 06:10] LABS: HEMATOCRIT 34.4 % (36.0-46.0); HEMOGLOBIN 11.7 g/dL (12.0-16.0)
== END 2022-07-20 14:10 | disposition home or self-care (01) | DRG 560 ==
LOC: MW.OBCHECK 14:34 → MW.OB 14:46 → MW.OBCHECK 16:25 → MW.OB 16:27 → OBSVTOIN 16:41 → MW.OB 07-19 05:16
PROVIDERS: ADMIT Obstetrics & Gynecology; ATTEND Obstetrics & Gynecology
PROC: 10E0XZZ Delivery of Products of Conception, External Approach (ICD-10-PCS; principal; 2022-07-18)
PROC: 0HQ9XZZ Repair Perineum Skin, External Approach (ICD-10-PCS; 2022-07-18)
PROC: 3E033VJ Introduction of Other Hormone into Peripheral Vein, Percutaneous Approach (ICD-10-PCS; 2022-07-18)
DX: O42.02 Full-term premature rupture of membranes, onset of labor within 24 hours of rupture (principal); O69.2XX0 Labor and delivery complicated by other cord entanglement, with compression, not applicable or unspecified; O70.0 First degree perineal laceration during delivery; Z37.0 Single live birth; Z3A.37 37 weeks gestation of pregnancy
CPT/HCPCS: 36415; 59025; 82803; 84112; 85014; 85018; 85027; 86592; 86850; 86900; 86901; A9270-GY; J2001; J2590; J7120

== ENCOUNTER 2024-08-06 00:39 | Inpatient (IN) | payer BC ==
[2024-08-06] MEDS ORDERED: Ondansetron 4 MG/2 ML SDV IVPUSH PRN (01:21)
[2024-08-06] MEDS ORDERED: Sodium Chloride 0.9% 10 ML Syringe FLUSH PRN (01:21)
[2024-08-06] MEDS ORDERED: Nalbuphine 10 MG/1 ML Vial IVPUSH PRN (01:21)
[2024-08-06] MEDS ORDERED: Sodium Chloride 0.9% 2.5 ML Syringe FLUSH PRN (01:21)
[2024-08-06] MEDS ORDERED: Misoprostol 200 MCG Tab RECTAL PRN (01:21)
[2024-08-06] MEDS ORDERED: Sodium Chloride 0.9% 20 ML SDV IV PRN (01:21)
[2024-08-06] MEDS ORDERED: Carboprost Tromethamine 250 MCG/1 mL Vial IM PRN (01:21)
[2024-08-06] MEDS ORDERED: Misoprostol 200 MCG Tab PO PRN (01:21)
[2024-08-06] MEDS ORDERED: Methylergonovine 0.2 MG/1 ML Amp IM PRN (01:21)
[2024-08-06] MEDS ORDERED: Terbutaline 1 MG/ML SDV SUBCUT PRN (01:21)
[2024-08-06] MEDS ORDERED: Water For Irrigation,Sterile 1,000 ML Container IRR PRN (01:21)
[2024-08-06] MEDS ORDERED: Oxytocin/0.9 % Sodium Chloride 30 UNIT/500 ML BAG IV SCH (01:30)
[2024-08-06] MEDS: Lactated Ringers 1,000 ML IV SCH (01:37)
[2024-08-06 01:54] LABS: HEMATOCRIT 36.1 % (37.0-47.0); HEMOGLOBIN 12.3 g/dL (12.0-16.0); MEAN CORPUSCULAR HEMOGLOBIN 30.4 pg (28.0-32.0); MEAN CORPUSCULAR HGB CONC 34.1 g/dL (32.0-36.0); MEAN CORPUSCULAR VOLUME 89.4 fL (83.0-99.0); MEAN PLATELET VOLUME 10.6 fL (9.4-12.3); PLATELET COUNT,PLT 176 K/uL (150-400); RED BLOOD CELL COUNT 4.04 M/uL (4.10-5.30); WHITE BLOOD CELL COUNT,WBC 10.29 K/uL (3.9-11.3)
[2024-08-06] MEDS: Oxytocin/0.9 % Sodium Chloride 30 UNIT/500 ML BAG IV SCH (03:51)
[2024-08-06] MEDS: Lidocaine 1% 50 ML MDV INJECT PRN (04:03)
[2024-08-06] MEDS ORDERED: Acetaminophen 500 MG Tab PO PRN (04:24)
[2024-08-06] MEDS ORDERED: Docusate Sodium 100 MG Cap PO PRN (04:24)
[2024-08-06] MEDS ORDERED: Witch Hazel Medicated Pads 40/Jar TOP PRN (04:24)
[2024-08-06] MEDS ORDERED: Ibuprofen 800 MG Tab PO PRN (04:24)
[2024-08-06] MEDS ORDERED: oxyCODONE 5 MG Tab PO PRN (04:24)
[2024-08-06] MEDS ORDERED: Aluminum Hydroxide/Magnesium Hydroxide/Simethicone Susp 30 ML Cup PO PRN (04:24)
[2024-08-06] MEDS ORDERED: Benzocaine/Menthol 20%-0.5% Spray 78 GM Cannister TOP PRN (04:24)
[2024-08-06] MEDS ORDERED: Lanolin 100% Cream 7 GM Tube TOP PRN (04:24)
[2024-08-06 04:35] LABS: PH,UMBILICAL ARTERIAL 7.4 (7.18-7.38); PH,UMBILICAL VENOUS 7.38 (7.25-7.45)
[2024-08-07 06:06] LABS: HEMATOCRIT 34.8 % (37.0-47.0); HEMOGLOBIN 11.8 g/dL (12.0-16.0)
== END 2024-08-07 10:19 | disposition home or self-care (01) | DRG 560 ==
LOC: MW.OB 00:39 → MW.OBCHECK 00:39 → MW.OB 01:21 → OBSVTOIN 03:51 → MW.OB 06:23
PROVIDERS: ADMIT Obstetrics & Gynecology; ATTEND Obstetrics & Gynecology
PROC: 10E0XZZ Delivery of Products of Conception, External Approach (ICD-10-PCS; principal; 2024-08-06)
PROC: 0HQ9XZZ Repair Perineum Skin, External Approach (ICD-10-PCS; 2024-08-06)
DX: O48.0 Post-term pregnancy (principal); Z3A.40 40 weeks gestation of pregnancy; Z37.0 Single live birth; O70.0 First degree perineal laceration during delivery; Z86.16 Personal history of COVID-19; Z98.890 Other specified postprocedural states
CPT/HCPCS: 36415; 59025; 59409; 82803; 85014; 85018; 85027; 86592; 86850; 86900; 86901; A9270-GY; J2003; J2590; J7120